=== PATIENT | male | born 1970 | race Two or more races ===

== ENCOUNTER 2016-11-03 11:04 | Emergency (ER) | payer OTHER ==
--- NOTE | 2016-11-03 12:59 | RAD ---
HISTORY: Left arm pain and trauma COMPARISONS: None VIEWS: 2, Frontal and lateral views of the left elbow FINDINGS: BONE DENSITY: Normal. BONES: There is no displaced fracture. JOINTS: There is no arthropathy. There is no posterior supracondylar fat pad to suggest a joint effusion. ALIGNMENT: There is no dislocation. SOFT TISSUES: Unremarkable. OTHER FINDINGS: None. IMPRESSION: NO ACUTE OSSEOUS INJURY. IF SYMPTOMS PERSIST, RECOMMEND REPEAT IMAGING.
--- NOTE | 2016-11-03 13:07 | RAD ---
INDICATION: Punched chair. Left hand pain COMPARISON: None TECHNIQUE: AP, lateral, and oblique views were obtained. FINDINGS: There is an angulated distal fifth metacarpal fracture with comminution. There are no other fractures. The joint spaces are maintained There is soft tissue swelling near fracture site. IMPRESSION: ANGULATED FIFTH METACARPAL FRACTURE.
[2016-11-03 13:37] VITALS: BP 109/71
--- NOTE | 2016-11-03 14:38 | ED ---
Upper Extremity Pain - HPI Summary HPI Summary: 45M presents with left pinky injury and elbow pain. He punched the furniture today. He is left handed. He denies any numbness or tingling. He has been placing ice on the area. - History of Current Complaint Chief Complaint: UCUpperExtremity Stated Complaint: KNUCKLE INJURY Time Seen by Provider: 11/03/16 14:15 - Allergies/Home Medications Allergies/Adverse Reactions: Allergies Allergy/AdvReac Type Severity Reaction Status Date / Time No Known Allergies Allergy Verified 10/20/13 10:15 PMH/Surg Hx/FS Hx/Imm Hx Endocrine/Hematology History: Denies: Hx Diabetes, Hx Thyroid Disease Cardiovascular History: Denies: Hx Hypertension Respiratory History: Denies: Hx Asthma, Hx Chronic Obstructive Pulmonary Disease (COPD) GI History: Denies: Hx Ulcer Infectious Disease History: No Infectious Disease History: Denies: Hx Clostridium Difficile, Hx Hepatitis, Hx Human Immunodeficiency Virus (HIV), Hx of Known/Suspected MRSA, Hx Shingles, Hx Tuberculosis, Hx Known/ Suspected VRE, Hx Known/Suspected VRSA, History Other Infectious Disease, Traveled Outside the in Last 30 Days - Family History Known Family History: Positive: Hypertension - Social History Alcohol Use: Occasionally Substance Use Type: Reports: None Smoking Status (MU): Never Smoked Tobacco Review of Systems Negative: Fever Negative: Chest Pain Negative: Shortness Of Breath Positive: Myalgia - left pinky and elbow pain All Other Systems Reviewed And Are Negative: Yes Physical Exam Triage Information Reviewed: Yes Vital Signs On Initial Exam: Initial Vitals Temp Pulse Resp BP Pulse Ox 98.2 F 74 16 123/71 100 11/03/16 12:29 11/03/16 12:29 11/03/16 12:29 11/03/16 12:29 11/03/16 12:29 Vital Signs Reviewed: Yes Appearance: Positive: Well-Appearing Skin: Positive: Warm, Dry Head/Face: Positive: Normal Head/Face Inspection Eyes: Positive: Normal, Conjunctiva Clear Respiratory/Lung Sounds: Positive: Clear to Auscultation, Breath Sounds Present Cardiovascular: Positive: Normal, RRR Musculoskeletal: Positive: Strength/ROM Intact - left elbow, Limited @ - left pinky due to pain, Other - good pulses, capillary refill <2secs, sensation grossly intact. edema noted of MCP joint of 5th metacarpel and pain located there Procedures - Splinting Location: left pinky Hand-Made Type: orthoglass Splint: ulnar Pre-Proc Neuro Vasc Exam: normal Post-Proc Neuro Vasc Exam: normal Diagnostics - Vital Signs Vital Signs Temp Pulse Resp BP Pulse Ox 11/03/16 13:35 98.8 F 98 16 109/71 100 11/03/16 12:29 98.2 F 74 16 123/71 100 - Laboratory Lab Statement: Any lab studies that have been ordered have been reviewed, and results considered in the medical decision making process. - Radiology hand Xray Interpretation: Positive (See Comments) - IMPRESSION: ANGULATED FIFTH METACARPAL FRACTURE. Radiology Interpretation Completed By: Radiologist elbow Xray Interpretation: No Acute Changes Radiology Interpretation Completed By: Radiologist Course/Dx - Course Course Of Treatment: 45M presents with left pinky pain and elbow s/p punching some furniture today. he is left handed. she has tenderness along length of left pinky. neg snuff box tenderness. full ROM of elbow and nontender to exam. placed in ulnar gutter. neurovascular intact. told to follow up with ortho. patient understands and agrees with plan - Diagnoses Differential Diagnosis/HQI/PQRI: Positive: Fracture (Closed), Strain, Sprain Provider Diagnoses: Fracture of fifth metacarpal bone Discharge - Discharge Plan Condition: Good Disposition: HOME Prescriptions: oxyCODONE/Acetamin 5/325 MG* [Percocet 5/325 TAB*] 1 tab PO Q6H PRN #8 tab MDD 4 PRN Reason: Pain Patient Education Materials: Boxer Fracture (ED) Referrals: Christopher Knutson MD [Primary Care Provider] - Gelacio Carmen MD [Medical Doctor] - Additional Instructions: Keep brace on area and keep dry Take Tylenol or ibuprofen every 6 hours as needed for pain, use narcotic for break through symptoms Apply ice, rest, elevate Follow up with ortho Return to ED if develop any new or worsening symptoms
== END 2016-11-03 14:50 | disposition home or self-care (01) ==
LOC: UCEAST 11:04
DX: S62.317A Displaced fracture of base of fifth metacarpal bone, left hand, initial encounter for closed fracture (principal); W22.03XA Walked into furniture, initial encounter; Y93.9 Activity, unspecified; Y92.9 Unspecified place or not applicable; M25.522 Pain in left elbow
CPT/HCPCS: 99212; G0463